=== PATIENT | female | born 1990 | race Caucasian/White ===

== ENCOUNTER 2021-03-13 02:12 | Observation (INO) ==
[2021-03-13] MEDS ORDERED: Ipratropium/Albuterol Neb 3 ML IH ONE (02:54)
[2021-03-13] MEDS ORDERED: 0.9 % Sodium Chloride 1,000 ML IVC ONE (02:54)
[2021-03-13] MEDS ORDERED: Isovue-370 500 ML BOTTLE IVP ONE (02:54)
[2021-03-13] MEDS ORDERED: Ketorolac 30 MG/ML VIAL IVP ONE ×2 (02:54→22:57)
[2021-03-13 03:30] LABS: ABG Base Excess 2 mEq/L (-2 to 3); ABG HCO3 26 mEq/L (21-27); ABG Oxygen Saturation 91 % (95-98); ABG PCO2 37 mmHg (35-45); ABG PH 7.46 pH Units (7.32-7.45); ABG PO2 58 mmHg (85-104); ABG TCO2 27 mEq/L (20-26)
[2021-03-13 03:55] LABS: Basophils % 0.4 %; Eosinophils % 0.2 %; Immature Granulocytes % 1.3 % (0-4); Lymphocytes # 2.2 K/mcL (0.6-4.6); Lymphocytes % 39.2 %; Mean Corpuscular HGB Conc 31.7 g/dL (31.6-35.5); Mean Corpuscular Hemoglobin 26.1 pg (28.0-33.3); Mean Corpuscular Volume 82.3 fL (83.0-100.0); Mean Platelet Volume 9.8 fL (9.4-12.4); Monocytes # 0.5 K/mcL (0.0-1.3); Monocytes % 9.6 %; Neutrophils # 2.7 K/mcL (1.6-8.9); Platelet Count 142 K/mcL (140-400); Red Blood Count 4.98 M/mcL (3.82-4.97); Red Cell Distribution Width 14.2 % (11.5-14.5); Segmented Neutrophils % 49.3 %; White Blood Count 5.5 K/mcL (4.3-11.1)
[2021-03-13 04:18] LABS: Bilirubin,Urine Negative (Negative); Blood,Urine Moderate (Negative); Clarity,Urine Slightly Cloudy (Clear); Color,Urine Yellow (Yellow); Glucose,Urine (UA) Normal (Normal); Ketones,Urine Negative (Negative); Leukocyte Esterase,Urine Trace (Negative); Nitrite,Urine Negative (Negative); PH,Urine 5.5 pH Units (5.0-8.0); Protein,Urine Negative (Neg-Trace); Specific Gravity,Urine >= 1.030 (1.010-1.025); Urobilinogen,Urine Normal (Normal)
[2021-03-13 04:34] LABS: Alanine Aminotransferase 44 Units/L (7-52); Albumin 4.1 g/dL (3.5-5.7); Albumin/Globulin Ratio 1.2 (1.1-2.2); Alkaline Phosphatase 60 Units/L (34-104); Aspartate Amino Transferase 31 Units/L (13-39); BUN/Creatinine Ratio 16 (6-26); Bilirubin,Direct 0.1 mg/dL (0.0-0.2); Bilirubin,Indirect 0.5 mg/dL (0.0-1.0); Bilirubin,Total 0.6 mg/dL (0.3-1.0); Blood Urea Nitrogen 17 mg/dL (6-20); Calcium 9.1 mg/dL (8.6-10.3); Carbon Dioxide 25 mEq/L (23-29); Chloride 98 mEq/L (98-107); Globulin 3.3 g/dL (2.4-3.5); Glucose 107 mg/dL (70-105); Osmolality,Calculated 284 (280-300); Potassium 4.1 mEq/L (3.5-5.1); Sodium 136 mEq/L (136-145); Total Protein 7.4 g/dL (6.4-8.9); eGFR For African Americans > 60 (> 60); eGFR For Non-African Americans > 60 (> 60)
[2021-03-13] MEDS ORDERED: Ondansetron 4 MG/2 ML VIAL IVP ONE ×2 (04:35→07:40)
[2021-03-13 04:38] LABS: Troponin I < 0.03 ng/mL (< 0.04)
[2021-03-13 04:39] LABS: Bacteria,Urine None Seen per hpf (None-Few); RBC,Urine 0-3 per hpf (0-3); Squamous Epithelial Cell,Urine Few per hpf (None-Few)
[2021-03-13] MEDS ORDERED: levoFLOXacin 750 MG/150 ML 750 MG/150 ML BAG IVPB ONE (06:29)
[2021-03-13] MEDS ORDERED: Naloxone 0.4 MG/ML INJ IVP PRN (09:52)
[2021-03-13] MEDS ORDERED: Acetaminophen 325 MG TABLET PO PRN (09:52)
[2021-03-13] MEDS ORDERED: Ipratropium/Albuterol Neb 3 ML IH PRN (09:55)
[2021-03-13] MEDS ORDERED: SUMAtriptan succinate 50 MG TABLET PO PRN (09:57)
[2021-03-13] MEDS: Budesonide/Formoterol 160/4.5 1 PUFF INH IH SCH ×2 (11:03→21:00)
[2021-03-13] MEDS: Loratadine 10 MG TABLET PO SCH (12:29)
[2021-03-13] MEDS: Ondansetron ODT 4 MG TAB.RAPDIS SL PRN ×2 (12:32→21:03)
[2021-03-14 07:52] LABS: Basophils % 0.2 %; Hematocrit 38.4 % (35.3-44.9); Hemoglobin 12.2 g/dL (11.5-15.4); Immature Granulocytes % 1.1 % (0-4); Lymphocytes # 0.9 K/mcL (0.6-4.6); Lymphocytes % 15.1 %; Mean Corpuscular HGB Conc 31.8 g/dL (31.6-35.5); Mean Corpuscular Hemoglobin 26.5 pg (28.0-33.3); Mean Corpuscular Volume 83.3 fL (83.0-100.0); Mean Platelet Volume 9.9 fL (9.4-12.4); Monocytes # 0.6 K/mcL (0.0-1.3); Neutrophils # 4.2 K/mcL (1.6-8.9); Platelet Count 147 K/mcL (140-400); Red Blood Count 4.61 M/mcL (3.82-4.97); Red Cell Distribution Width 14.2 % (11.5-14.5); Segmented Neutrophils % 73.6 %; White Blood Count 5.7 K/mcL (4.3-11.1)
[2021-03-14 08:01] LABS: BUN/Creatinine Ratio 19 (6-26); Blood Urea Nitrogen 13 mg/dL (6-20); Calcium 8.5 mg/dL (8.6-10.3); Carbon Dioxide 26 mEq/L (23-29); Chloride 105 mEq/L (98-107); Glucose 149 mg/dL (70-105); Osmolality,Calculated 293 (280-300); Potassium 4.3 mEq/L (3.5-5.1); Sodium 140 mEq/L (136-145); eGFR For African Americans > 60 (> 60); eGFR For Non-African Americans > 60 (> 60)
[2021-03-14] MEDS ORDERED: levoFLOXacin 750 MG TABLET PO SCH (09:00)
[2021-03-14] MEDS ORDERED: dexAMETHasone 4 MG TABLET PO SCH (09:00)
[2021-03-14] MEDS: Loratadine 10 MG TABLET PO SCH (09:46)
[2021-03-14] MEDS: Ondansetron ODT 4 MG TAB.RAPDIS SL PRN ×2 (09:46→21:21)
[2021-03-14] MEDS: Budesonide/Formoterol 160/4.5 1 PUFF INH IH SCH ×2 (10:07→20:59)
[2021-03-14] MEDS ORDERED: Ketorolac 15 MG/ML VIAL IVP ONE (11:00)
[2021-03-14] MEDS ORDERED: Prochlorperazine 10 MG/2 ML VIAL IVP ONE (11:01)
[2021-03-15 07:09] VITALS: BP 96/56; PULSE 93; RESP 91; TEMP 98.7; O2SAT 20
[2021-03-15] MEDS: Budesonide/Formoterol 160/4.5 1 PUFF INH IH SCH (10:54)
[2021-03-15 18:36] LABS: SARS-CoV-2 by NAA Detected (Not Detected)
== END 2021-03-15 10:55 | disposition home or self-care (01) ==
LOC: EMEROOPIK 02:12 → INPPIK 02:12
PROVIDERS: ADMIT Nurse Practitioner Family; ATTEND Nurse Practitioner Family